=== PATIENT | female | born 1960 | race African-American/Black ===

== ENCOUNTER 2017-02-05 10:17 | Inpatient (IN) | payer OTHER ==
[~2017-02-05] VITALS: Ht 165.1 cm; Wt 96.3 kg
--- NOTE | 2017-02-05 10:30 | NUR ---
PT BIB [facility] WITH C/C OF NEAR SYNCOPE AND POSSIBLE LOW BLOOD SUGAR. PER EMS: PT BECAME DIZZY AND WEAK AND WAS LOWERED INTO CHAIR WITHOUT FALL OR INJURY, BYSTANDERS GAVE PT ORANGE JUICE AND CANDY WITH ASSUMPTION OF LOW BLOOD SUGAR; EMS REPORTS BLOOD SUGAR ON ARRIVAL TO BE 320. ON ARRIVAL TO ER, PT IS AWAKE OX4, FOLLOWING COMMANDS AND ANSWERING QUESTIONS APPROPRIATELY. PER PT: BLOOD SUGAR IN AM WAS 80, PT CONFIRMED EMS NARRITIVE, DENIES SYNCOPE. RESP EVEN AND UNLABORED, RA. DENEIS PAIN, DENEIS SOB, DENIES ANY CHEST PAIN. VS STABLE. PT HAS EPISODE OF BOWEL INCONTINENCE AND WAS CLEANED MOMENTS AFTER ARRIVAL TO ER
--- NOTE | 2017-02-05 10:38 | NUR ---
DR GARCIA AT BEDSIDE FOR MSE
--- NOTE | 2017-02-05 11:25 | NUR ---
ELEMENTARY ELL TEACHER AT BEDSIDE FOR BLOOD DRAW
[2017-02-05 11:30] LABS: BASOPHIL % 0.6 % (0-2); RED CELL DISTRIBUTION WIDTH 14.2 % (11.5-14.5)
--- NOTE | 2017-02-05 11:32 | NUR ---
RADIOLOGY AT BEDSIDE FOR PCXR
[2017-02-05 11:33] LABS: PLATELET COUNT 421 x10^3mcL (130-400)
--- NOTE | 2017-02-05 11:35 | NUR ---
PT SLEEPING AT THIS TIME. RESP EVEN AND UNLABORED, RA. VS STABLE. NAD NOTED. NS INFUSING
[2017-02-05 11:46] LABS: CALCIUM 9.2 mg/dL (8.5-10.1); CARBON DIOXIDE 24.3 mmol/L (21-32); POTASSIUM SERUM 4.9 mmol/L (3.5-5.1)
[2017-02-05 11:50] LABS: BILIRUBIN TOTAL 0.22 mg/dL (0.20-1.00); CHOLESTEROL/HDL RATIO 3.4; TOTAL PROTEIN, SERUM 7.4 g/dL (6.4-8.2)
[2017-02-05 11:52] LABS: ALBUMIN 2.8 g/dL (3.4-5.0)
[2017-02-05 12:01] LABS: FREE T4 1.18 ng/dL (0.76-1.46); FREE THYROXINE INDEX 2.9 ug/dL (1.4-4.5)
[2017-02-05 12:16] LABS: T3 TOTAL 1.24 ng/mL
--- NOTE | 2017-02-05 13:00 | NUR ---
PT AWAKE, AND IN STABLE CONDITION. RESP EVEN AND UNLABORED. VS STABLE. FAMILY AT BEDSIDE.
[2017-02-05] MEDS ORDERED: ASPIR 8181 MG PO (13:40)
[2017-02-05] MEDS ORDERED: ATORVASTATIN CA80 M1 PO (13:40)
[2017-02-05] MEDS ORDERED: NOR10 PO (13:40)
[2017-02-05] MEDS ORDERED: PLA75 PO (13:41)
[2017-02-05] MEDS ORDERED: LANTUS SOLOS100 U/M1 SQ (13:44)
[2017-02-05] MEDS ORDERED: VICTOZA6 MG/M1 SC (13:44)
[2017-02-05] MEDS ORDERED: ISOSORBIDE30 M1 PO (13:44)
[2017-02-05] MEDS ORDERED: CARVEDILOL25 M1 PO (13:45)
--- NOTE | 2017-02-05 13:56 | NUR ---
REPORT GIVEN TO AAMIR RN COMVERING FOR JENN RN IN [facility] FOR CONTINUITY OF CARE
--- NOTE | 2017-02-05 14:20 | NUR ---
RECEIVED PT FROM ER BY DIANE. PT NO COMPLAIN OF PAIN AT THIS TIME, BUT STATED MILE DIZZINESS. PT BREATHING ON RA, EVEN, UNLABORED. IV SITE PATENT, INTACT. RESUME IVF PER ORDER.
[2017-02-05 14:39] LABS: UA SPECIFIC GRAVITY >=1.030 (1.005-1.035); microscopic required? YES; urine erythrocyte 1+ (NEGATIVE)
[2017-02-05 14:58] VITALS: BP 139/76
[2017-02-05 14:58] LABS: MAGNESIUM 1.9 mg/dL (1.8-2.4); PHOSPHOROUS 5.1 mg/dL (2.5-4.9)
--- NOTE | 2017-02-05 17:36 | NUR ---
PT BROUGHT HER HOME MED [facility]CT[facility] FOR DM. [facility]CTOSA WAS SENT TO PHARMACY, AND WAITED FOR DR. SEAMUS CHURCH, SO PHARMACY CAN VERIFY THIS MED.
[2017-02-05 18:04] LABS: AMPHETAMINE QUAL UR NONE DETECTED (NEG <=1000)
--- NOTE | 2017-02-05 18:23 | NUR ---
MADE DR. WAY AWARE PT'S HOME MED VICTOZA WAS SENT TO PHARMACY.
--- NOTE | 2017-02-05 18:45 | NUR ---
PT HAD DINNER. PT TOLERATE WELL, NO COMPLAIN OF NAUSEA. NO REPORT DIARRHEA SINCE PT GOT HERE. PT AMBULATE TO BATHROOM WITH STEADY GAIT. PT BREATHING ON RA, EVEN, UNLABORED. IV SITE PATENT, INTACT. IVF INFUSING WELL.
--- NOTE | 2017-02-05 20:23 | NUR ---
PT IS A/O X4, VERBAL RESPONSIVE, ABLE TO TELL WHAT SHE NEEDS. PT DENY ANY DIZZINESS AT THIS MOMENT, LUNG SOUND CLEAR BILATERAL, NO COUGH, NO SOB, BOWEL SOUND PRESENT ALL 4 QUADRANTS, NO DISTENTION. NO TENDER. PEDAL PULSE PRESENT BOTH FEET, +1 EDEMA NOTED, PT C/O BACK PAIN 5/10, NORCO WAS GIVEN, IV AT LEFT HAND, NO LEAKING, NO INFILTRATION. ALL ADLS ASSIST, ALL NEED MET, CALL LIGHT IN REACH, WILL CONTINUE TO MONITOR.
[2017-02-05 22:16] VITALS: BP 164/79
--- NOTE | 2017-02-06 05:06 | NUR ---
PT IS A/O X4, VERBAL RESPONSIVE, DENY ANY RESPIRATORY DISTRESS, DENY ANY PAIN OR DISCOMFORT, IV AT LEFT HAND, NO LEAKING, NO INFILTRATION. ALL ADLS ASSIST, ALL NEED MET, CALL LIGHT IN REACH, WILL CONTINUE TO MONITOR.
[2017-02-06 07:02] VITALS: BP 128/72
[2017-02-06 07:17] LABS: CALCIUM 8.8 mg/dL (8.5-10.1); CARBON DIOXIDE 21.7 mmol/L (21-32); CREATININE SERUM 1.7 mg/dL (0.6-1.0); MAGNESIUM 1.8 mg/dL (1.8-2.4); PHOSPHOROUS 4.8 mg/dL (2.5-4.9); POTASSIUM SERUM 4.6 mmol/L (3.5-5.1)
[2017-02-06 07:22] LABS: PLATELET COUNT 357 x10^3mcL (130-400); RED CELL DISTRIBUTION WIDTH 14.1 % (11.5-14.5)
--- NOTE | 2017-02-06 07:30 | NUR ---
PT SEEN REST ON BED, NO COMPLAIN OF DIZZINESS AND PAIN AT THIS TIME. PT BREATHING ON RA, EVEN, UNLABORED. IV SITE PATENT, INTACT. IVF INFUSING WELL.
[2017-02-06 08:30] VITALS: BP 127/69
[2017-02-06 11:09] LABS: ATYPICAL LYMPH 3 %; BAND NEUTROPHIL 0 % (0-10); BASOPHIL 0 % (0-2); MONOCYTE 5 % (0-7); SEGMENTED NEUTROPHILS 40 % (37-75)
[2017-02-06 11:10] LABS: rbc morphology (normal/abnorm) ABNORMAL (NORMAL)
[2017-02-06 11:11] LABS: PLATELET MORPHOLOGY LARGE PLATELET SEEN
[2017-02-06] MEDS ORDERED: GLUCOTROL10 MG PO (12:17)
[2017-02-06 17:29] VITALS: BP 148/69
--- NOTE | 2017-02-06 18:30 | NUR ---
THROUGH DAY, PT NO COMPLAIN OF PAIN, NO REPORT NAUSEA AND DIARRHEA. PT WAS ABLE TO AMBULATE BY HERSELF IN THE [place]. PT BREATHING ON RA, EVEN, UNLABORED. IV SITE PATENT, INTACT. IVF INFUSING WELL.
--- NOTE | 2017-02-06 20:02 | NUR ---
PT IS A/O X4, VERBAL RESPONSIVE, ABLE TO TELL WHAT SHE NEEDS. DENY ANY DIZZINESS OR HEADACHE, LUNG SOUND CLEAR BILATERAL, NO COUGH, NO SOB, PT IS ON TELE 18, NSR, DENY ANY CHEST PAIN OR DISCOMFORT, BOWEL SOUND PRESENT ALL 4 QUADRANTS, NO DISTENTION, NO TENDER. PEDAL PULSE PRESENT BOHT FEET, +1 EDEMA NOTED, IV AT LEFT HAND, NO LEAKING, NO INFILTRATION. ALL ADLS ASSIST, ALL NEED MET, CALL LIGHT IN REACH, WILL CONTINUE TO MONITOR.
[2017-02-06 22:16] VITALS: BP 159/74
--- NOTE | 2017-02-07 05:24 | NUR ---
PT IS A/O X4, VERBAL RESPONSIVE, DENY ANY RESPIRATORY DISTRES, DENY ANY PAIN OR DISCOMFORT, IV AT LEFT HAND, NO LEAKING, NO INFILTRATION. ALL ADLS ASSIST, ALL NEED MET, CALL LIGHT IN REACH, WILL CONTNIUE TO MONITOR.
[2017-02-07 06:37] LABS: BASOPHIL % 0.3 % (0-2); PLATELET COUNT 391 x10^3mcL (130-400)
[2017-02-07 07:02] LABS: CALCIUM 8.8 mg/dL (8.5-10.1); CARBON DIOXIDE 26.3 mmol/L (21-32); CREATININE SERUM 1.6 mg/dL (0.6-1.0); MAGNESIUM 1.7 mg/dL (1.8-2.4); PHOSPHOROUS 3.9 mg/dL (2.5-4.9); POTASSIUM SERUM 4.4 mmol/L (3.5-5.1)
--- NOTE | 2017-02-07 08:00 | NUR ---
RECEIVED PT IN BED ALERT AND ORIENTED X4. TELE #18, NSR. DENIES ANY PAIN OR DISCOMFORT. BREATHING EVEN AND UNLABORED ON RA, NO SOB. DENIES HEADACHE OR DIZZINESS. DENIES ANY ABD PAIN OR N/V/D. VOIDS FREELY. AMBULATORY. SKIN CDI. NO EDEMA NOTED. INSTRUCTED TO USE CALL LIGHT WHEN IN NEED OF ANY ASSISTANCE.
[2017-02-07 10:01] VITALS: BP 108/68; BP 108/688
--- NOTE | 2017-02-07 11:34 | NUR ---
Initial Nutrition Assessment Dx: Near Syncope, Coronary Artery Disease, Renal Insufficiency PMHx: HTN, CHF, type 2 DM, CKD stage III, CAD with stents x8, horseshoe kidney, MITALI, gastroparesis, diabetic neuropathy PSHx: Appendectomy, cholecystectomy, sinus surgery, tonsillectomy Labs: BG 179 H, BUN 21 H, Cr 1.6 H, Phosphorous 3.9, Magnesium 1.7 L, H/H 10.5/33 L; (02/05) ALB 2.8 L, Triglycerides 157 H, LDL 101 H, A1C 7.9 H Meds: Colace, D50%, humulin R, imdur, levemir, NS IV, theragran, zofran Current Diet Order: CCHO-60 gm PO Intakes: (02/06) L: 100%; (02/05) D: 100% Ht: 65", 5' 5". Wt: 211 lb, 96 kg. BMI: 35.3 kg/m2 (Obesity Class II) IBW: 125 lb, 57 kg. %IBW: 168%. Adj BW: 147 lb, 67 kg. UBW: 201 lb, 91 kg. Age: 56 Y/O F Food Allergies: None Skin: Intact. Les 19. Edema: 1+ BLE GI: Abd non-distended. Active bowel sounds. Last BM 02/05. No diarrhea per pt. Nursing Trigger: Nausea, Vomiting, Diarrhea >3 days. Pt found with metabolic encephalopathy with near syncopal episode likely secondary to hypoglycemia vs dehydration per doctor's notes. Per doctor's progress note 02/06, ECHO completed, pending results, no acute events overnight, pain free at this time. Per H&P documentation, pt stated that she has frequent diarrhea for past 3-4 months, attributes this to multiple medications she is taking, been trying to work with PCP to reduce some medications, however, not able to do so yet. Per [facility] Huddle reports, pt will be discharged today. Pt was seen talking on phone during RD visit. Pt reported good PO intakes, no diarrhea at this time, doing well. Problem with: N: None. V: None. D: None. C: None. Problems with: Chewing: None. Swallowing: None. Current Appetite: Good Recent Weight Change: +10 lb. % Weight Change: 4.9% weight gain - Pt reports due to fluid retention Vitamin/Supplement use: None Diet at Home: Diabetic Physical Activity: Walks Education: RD offered nutrition education, however, pt declined, stated that she follows a Dietitian at an outpatient clinic in [facility], stated that she has multiple handouts and understands the diet well. RD acknowledged. Estimated Nutritional Needs Based IBW 125 lb, 57 kg. Energy: 7810-5936 kcal/day (25-30 kcal/kg for Maintenance) Protein: 34-46 gm/day (0.6-0.8 gm/kg for CKD Stage III) Fluids: 1710 ml/day (30 ml/kg for Maintenance) or per doctor Nutrition Diagnosis Altered nutrition related labs related to renal and endocrine dysfunction as evidenced by elevated BUN 21, Cr 1.6, BG 179, A1C 7.9% Intervention 1. Continue CCHO-60 gm diet per doctor. 2. If pt does not get discharged, consider CCHO-60 gm, 50 gm Protein diet. Noted pt with altered renal labs and history of CKD stage III. Monitor/Evaluate Goal: PO intakes to meet >75% of estimated needs Monitor: PO intakes, tolerance to diet, labs (BG, renal), skin integrity, GI function, weights F/U in 7 days as LOW risk (02/14)
[2017-02-07 12:22] VITALS: BP 108/68
--- NOTE | 2017-02-07 13:30 | NUR ---
IV AND TELE DC'D. DISCHARGE INSTRUCTIONS GIVEN AND EXPLAINED TO PT, PT VERBALIZED UNDERSTANDING. PT DISCHARGED HOME, ACCOMPANIED OFF FLOOR AMBULATORY BY RN TOGETHER WITH FAMILY.
== END 2017-02-07 13:26 | disposition home or self-care (01) | DRG 640 ==
LOC: ED 10:17 → DU 12:50
PROVIDERS: Specialist; ADMIT Family Medicine
DX: E86.0 Dehydration (principal); G93.41 Metabolic encephalopathy; N17.0 Acute kidney failure with tubular necrosis; E43 Unspecified severe protein-calorie malnutrition; D68.69 Other thrombophilia; E11.65 Type 2 diabetes mellitus with hyperglycemia; E11.51 Type 2 diabetes mellitus with diabetic peripheral angiopathy without gangrene; E11.40 Type 2 diabetes mellitus with diabetic neuropathy, unspecified; R55 Syncope and collapse; I12.9 Hypertensive chronic kidney disease with stage 1 through stage 4 chronic kidney disease, or unspecified chronic kidney disease; N18.3 Chronic kidney disease, stage 3 (moderate); E87.5 Hyperkalemia; E83.39 Other disorders of phosphorus metabolism; G47.33 Obstructive sleep apnea (adult) (pediatric); I25.10 Atherosclerotic heart disease of native coronary artery without angina pectoris; Q63.1 Lobulated, fused and horseshoe kidney; E78.5 Hyperlipidemia, unspecified; E03.9 Hypothyroidism, unspecified; D64.9 Anemia, unspecified; E66.9 Obesity, unspecified; Z68.35 Body mass index [BMI] 35.0-35.9, adult; Z95.5 Presence of coronary angioplasty implant and graft; Z79.4 Long term (current) use of insulin
CPT/HCPCS: 82962; 83880; 84439; J1815; J7030; Q0092